=== PATIENT | male | born 1960 | race Caucasian/White ===

== ENCOUNTER 2017-10-03 19:35 | Day surgery (SDC) | payer OTHER, SELFPAY ==
[2017-10-03 19:39] VITALS: BP 146/95; PULSE 89; RESP 14; O2SAT 97
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
--- NOTE | 2017-10-03 20:15 | DI.RAD.S_ITS ---
PROCEDURE: XR HAND RT MIN 3V INDICATIONS: Lacerations/partial amputations to 2,3,4 and 5th finger tips TECHNIQUE: 3 views of the hand(s) acquired. COMPARISON: None. FINDINGS: Bones: Comminuted fractures of the distal phalanges of the index, middle and little finger. There is partial amputation of the distal phalanx of the middle finger. No definite fracture seen involving the ring finger distal phalanx although there is soft tissue injury and swelling. IMPRESSION: Amputation of the middle finger tip at the level of the distal phalanx. Comminuted fractures of the distal phalanges of the index, middle and little finger. Dictated by: Jluis Nazario M.D. on 10/03/2017 at 21:44 Approved by: Jluis Nazario M.D. on 10/03/2017 at 21:46
[2017-10-03] MEDS: HYDROMORPHONE 1 MG INJ IV ×2 (20:24→22:00)
[2017-10-03] MEDS: CEFAZOLIN 1 GM/50 ML FROZ.PIGGY IV (20:24)
--- NOTE | 2017-10-03 21:14 | PC.NURSE ---
right hand was irrigated with 1000ml NS and dressed with telfa. bleeding controlled.
[2017-10-03 21:47] VITALS: BP 129/75; PULSE 74; RESP 17; O2SAT 96
[2017-10-03] MEDS: SODIUM CHLORIDE 0.9% 1,000 ML 250 ML IV (22:00)
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
--- NOTE | 2017-10-03 22:39 | PM.PREOP ---
Pre-operative Note Interval Note Pre-op Check: Yes History & Physical exam performed today by Physician Changes: No
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
[2017-10-03] MEDS: LACTATED RINGERS 1,000 ML 42 ML IV (22:51)
[2017-10-03] MEDS: CITRIC ACID/SODIUM CITRATE 30 ML SOLUTION PO (22:51)
[2017-10-03 22:52] VITALS: BP 146/82; PULSE 80; RESP 20; TEMP 36.6; O2SAT 98; BMI 23.6
[2017-10-03] MEDS: BUPIVACAINE 0.25% (PF) VIAL 30 ML INJ (23:40)
[2017-10-04] VITALS (10 sets, daily range): BP systolic 102–141; BP diastolic 59–85; PULSE 65–81; RESP 15–20; TEMP 36.2–36.7; O2SAT 95–99; BMI 23.6
[2017-10-04] MEDS: CEFAZOLIN 2 GM/100 ML FROZ.PIGGY IV (06:05)
--- NOTE | 2017-10-04 07:13 | PM.DS.1 ---
History of Present Illness Date Patient Seen: 10/04/17 Time Patient Seen: 07:10 Chief complaint: Rt Hand Injury with finger amputations Narrative: Patient seen at bedside status post I and D the little ring index and middle fingers of the right hand with excision of comminuted proximal fragment distal phalanx of the index finger and repair of lacerations of the little index and ring fingers. He is postop day 1. He is doing well with his pain is well controlled. He is ready to go home. Discharge Providers Date of admission: 10/03/17 22:16 Consults: 10/04/17 00:56 Consult to Discharge Planning Routine Comment: Consult to Respiratory Therapy Evaluate & Treat Comment: Physician Instructions: Evaluate and treat Discharge provider: Yamileth Castellano PA-C Summary Discharge Diagnosis: 1. Open distal phalanx fractures of the right, little, and index fingers 2. Traumatic amputation at the IP joint of the middle finger Hospital Course: Patient was placed in observation status post I and D of the little ringing in the right hand with excision of coming proximal fracture of the distal phalanx of the index finger repair of lacerations a little index and ring fingers of the right hand. Patient is doing well, his pain is well controlled and he is ready to go home. Discharge home 10/04/2017 with follow up at the clinic in 1 weeks' time. Status at Discharge Cognitive/behavioral status at discharge: A&O x4 Functional status at discharge: independent ambulation Overall status at discharge: patient is progressing back to baseline Time Spent with Patient Less than 30 minutes Exam Vital Signs (past 8 hours): - 10/04/17 00:20 10/04/17 00:25 10/04/17 00:30 Temperature 97.5 F L 97.5 F L 97.5 F L Pulse Rate 77 71 68 Respiratory Rate 17 20 15 Blood Pressure 118/81 H 120/85 H 116/85 H Pulse Oximetry 95 99 99 10/04/17 00:40 10/04/17 00:57 10/04/17 01:24 Temperature 97.5 F L 97.6 F 97.6 F Pulse Rate 69 69 65 Respiratory Rate 20 16 16 Blood Pressure 127/81 H 129/82 H 116/70 Pulse Oximetry 98 97 99 10/04/17 01:50 10/04/17 02:50 10/04/17 06:18 Temperature 98.1 F 97.2 F L 97.9 F Pulse Rate 69 73 79 Respiratory Rate 16 16 16 Blood Pressure 116/70 102/59 L 117/73 Pulse Oximetry 96 97 97 Oxygen Delivery Method Heated High Flow Narrative Exam Narrative: Patient is well-developed well-nourished in no acute distress. Patient is alert and oriented x3. Examination right hand is in a short-arm splint that is clean dry and intact with no signs of discharge. He is neurovascularly intact in this extremity. Discharge Plan Discharge Plan Patient Disposition: Home, Self-Care Provider Discharge Instructions Diet: Diet as Tolerated Activity: No lifting greater than 5 lbs with operative hand. Cold/Heat Therapy: Ice for 20 minutes at a time as needed. Wound Care Report to your healthcare provider any signs of infection, such as:: chills, fever, night sweats, increased pain and unusual drainage Dressing: Keep dressing clean, dry, and intact until follow up appointment. Discharge Data Attending Provider: Johnson Orozco Admit Date/Time: 10/03/17 22:16 Quality VTE Deep Vein Thrombosis/Pulmonary Embolism Present on Admission: No
[2017-10-04] MEDS: OXYCODONE IR 5 MG TABLET PO (07:42)
--- NOTE | 2017-10-04 07:48 | PC.NURSE ---
late entry admit note: pt to floor -rm 204 via stretcher from PACU at 0050, awake/alert denied any pain to R hand. cap refill to R thumb wnl,warm dry skin, drsg/splint intact w/ruby wrap to cover. arm/hand elevated w/ice pack in place. RA sat 92-98% while awake. staying overnight w/pt, plan for DC home in am.
--- NOTE | 2017-10-04 08:09 | CM.DANOTE ---
DCP Chart Review/Discharge Home Patient is a 57 year old male who was admitted on 10/03/17 for Rt Hand Injury with Amputation. Pt has [employer] for insurance and his PCP is not listed and on [facility]. EMR was reviewed. Per MD, pt is medically stable to d/c home today with supportive family and no identified barriers to discharge. Per RN, pt's supportive spouse is bedside and pt is independent in the room and no needs at this time. No needs identified and no bedside assessment for d/c planning due to triage needs. Plan: Patient to d/c home back to [facility] today via spouse POV. No SW needs at this time. JUSTIN Tenorio Discharge Planning/Care Management CM Discharge Assessment Start: 10/04/17 08:07 Freq: Status: Active Protocol: Document 10/04/17 08:08 BF (Rec: 10/04/17 08:09 [email or web address]) Discharge Planning Assessment Assigned Clinic Receptionist [employer] History Provided By Significant Other Medical Record Has Patient been admitted in last 30 No days? Is this patient on Medicare? No Is the admit diagnosis the same? Yes Prior Living Arrangements House Household Members spouse children Type of transporation used prior to Drives own vehicle admit Independent with ADL's Yes Is patient alert and oriented? Yes Caregiver for Another Yes: children Referrals Initiated None needed Discharge Plan Home Transportation Arrangement Spouse bedside and can provide transport back to [facility] Review Status In Process Next Review Type Discharge Review
== END 2017-10-04 10:08 | disposition home or self-care (01) ==
LOC: ED 20:12 → AC 10-04 00:39 → OR 10-04 11:05
PROVIDERS: Emergency Provider Emergency Medicine; Visit Provider Orthopaedic Surgery
PROC: (CPT 26236; principal; 2017-10-03 22:45)
DX: S68.613A Complete traumatic transphalangeal amputation of left middle finger, initial encounter (principal); S62.630B Displaced fracture of distal phalanx of right index finger, initial encounter for open fracture; S62.634B Displaced fracture of distal phalanx of right ring finger, initial encounter for open fracture; S62.636B Displaced fracture of distal phalanx of right little finger, initial encounter for open fracture; W26.8XXA Contact with other sharp object(s), not elsewhere classified, initial encounter
CPT/HCPCS: 26236 ×2; 12002; 73130; 99283; G0378; J0330; J0690; J1100; J1170; J2250; J2405; J2704; J3010

== ENCOUNTER → 2020-09-26 12:18 | Outpatient (CLI) | payer OTHER, SELFPAY ==
[2017-10-04 02:29] VITALS: BMI 23.6
[2020-09-26 22:35] LABS: COVID19 - ORCAS (NP or Nasal) Negative (Negative)
== END ==
PROVIDERS: PCP Family Medicine; Visit Provider Physician Assistant Medical
DX: Z20.822 Contact with and (suspected) exposure to COVID-19 (principal)
CPT/HCPCS: U0003

== ENCOUNTER → 2023-08-11 12:32 | Outpatient (CLI) | payer OTHER, SELFPAY ==
[2023-08-11 12:32] VITALS: BMI 23.6
--- NOTE | 2023-08-11 12:37 | DI.RAD.S_ITS ---
PROCEDURE: XR HIP W PEL IF DONE NICCI MIN 4V INDICATIONS: BILATERAL HIP JOINT PAIN TECHNIQUE: AP pelvis with lateral view(s) of the both hip(s). COMPARISON: None. FINDINGS: Bones: Mild bilateral hip arthrosis. No acute displaced fracture or dislocation. Soft tissues: Suspected bilateral calcific tendinopathy of the greater trochanters. IMPRESSION: Mild bilateral hip arthrosis. No acute radiographic abnormality. If there is high concern for further derangement, consider MRI evaluation. Dictated by: Gregorio Monteiro M.D. on 08/11/2023 at 14:44 Approved by: Gregorio Monteiro M.D. on 08/11/2023 at 14:44
== END ==
LOC: RAD 12:36
PROVIDERS: PCP Family Medicine; Referring Provider Family Medicine; Visit Provider Family Medicine
DX: M16.0 Bilateral primary osteoarthritis of hip (principal); M25.551 Pain in right hip; M25.552 Pain in left hip
CPT/HCPCS: 73522

== ENCOUNTER → 2023-09-29 08:41 | Outpatient (CLI) | payer BC, SELFPAY ==
[2023-08-11 12:32] VITALS: BMI 23.6
--- NOTE | 2023-09-29 08:43 | DI.NM.S_ITS ---
PROCEDURE: NM JJ PERF SPECT REST & STR Rest and exercise myocardial perfusion SPECT with gated imaging and ejection fraction RADIOPHARMACEUTICAL: 11.6 mCi Tc-99m sestamibi IV at rest and 25.4 mCi Tc-99m sestamibi IV at peak exercise. A [id number] was performed. INDICATIONS: Atherosclerotic heart disease/pure hypercholesterolemia TECHNIQUE: Radiopharmaceutical was injected at peak stress test, and also at rest. SPECT images were obtained. SPECT myocardial perfusion images were displayed in short axis, horizontal long axis, and vertical long axis views. Gated images were reviewed using XYZE software. COMPARISON: None. CARDIAC STRESS: A standard Reg treadmill exercise tolerance test was performed by the patient under the supervision of an attending staff. The patient exercised for 11 minutes and 11 seconds; 11.8 METS; functional aerobic impairment (JASPER) is -27%. Hemodynamic data: There is normal blood pressure and heart rate response to exercise stress. Patient achieved 101% of maximum predicted heart rate at peak exercise. Maximum blood pressure 160/90. Symptoms: Patient denied chest pain during exercise. EK-[address] segment depressions inferior and anterolateral leads; no arrhythmia or ectopy. FINDINGS: Raw data: There is good myocardial labeling by radiotracer. No significant motion artifacts. Rank-zc-xcdye ratio is 0.32 (normal is less than 0.38 for sestamibi tracer, and less than 0.50 for thallium tracer). Left ventricle function: Gated images demonstrate normal left ventricle wall thickening. No segmental wall motion abnormality. No transient ischemic dilation; TID is 0.78 (normal less than 1.3). The left ventricle resting end-diastolic volume is 84 mL. Left ventricle stress ejection fraction is 73%; normal values are above 45%. Myocardial perfusion: There is normal distribution of activity in the left and right ventricular myocardium. No fixed or reversible perfusion defects. IMPRESSION: Low risk study. No evidence of exercise-induced ischemia on SPECT imaging. False positive exercise ECG. Normal LV size and function. Normal hemodynamic response. Very good exercise capacity. Dictated by: Jeannette Dominguez D.O. on 09/29/2023 at 16:10 Approved by: Jeannette Dominguez D.O. on 09/29/2023 at 16:17
== END ==
PROVIDERS: PCP Family Medicine; Referring Provider Internal Medicine Cardiovascular Disease; Visit Provider Internal Medicine Cardiovascular Disease
DX: I25.119 Atherosclerotic heart disease of native coronary artery with unspecified angina pectoris (principal); E78.00 Pure hypercholesterolemia, unspecified
CPT/HCPCS: 78452; 93017; A9502

== ENCOUNTER 2025-01-30 08:43 | Day surgery (SDC) | payer BC, SELFPAY ==
[2023-08-11 12:32] VITALS: BMI 23.6
[2025-01-14 07:40] VITALS: BMI 26.5
[2025-01-30 09:19] VITALS: BP 140/88; PULSE 61; RESP 18; TEMP 36.1; O2SAT 100
--- NOTE | 2025-01-30 09:26 | PM.HP.IH.1 ---
History of Present Illness History of Present Illness Date Patient Seen: 01/30/25 Chief complaint: Screening Colonoscopy [facility] Medical History (Updated 01/30/25 @ 09:29 by Yoon Lobato MD) GERD (gastroesophageal reflux disease) Kidney stones Testicular cancer Coronary artery disease High cholesterol High blood pressure Surgical History (Updated 01/14/25 @ 07:37 by Antoinette Pena, RN) Hx of hand surgery (10/03/17) H/O bilateral orchiectomies Family History (Updated 07/13/21 @ 14:34 by Rosalina Temple RN) Sister Cancer Hx of migraines Mother Hx of migraines Social History (Updated 07/13/21 @ 14:35 by Rosalina Temple RN) marital status: number of children: 2 household members: spouse and children Type(s) of exercise: weight lifting frequency: 3-4 times per week Meds Home Medications and Allergies Home Medications ?Medication ?Instructions ?Recorded ?Confirmed ?Type atorvastatin 40 mg tablet 40 mg PO DAILY ##0 10/03/17 01/30/25 History metoprolol succinate 25 mg 12.5 mg PO BEDTIME ##0 10/03/17 01/30/25 History tablet,extended release 24 hr oxycodone 5 mg tablet 5 mg PO Q4H PRN Pain, Moderate 10/04/17 01/30/25 Rx (4-6) #30 tabs testosterone cypionate 200 mg/mL 200 mg IM Q2W 10/04/17 01/30/25 History intramuscular kit aspirin 81 mg capsule 81 mg PO DAILY 01/14/25 01/14/25 History coenzyme Q10 100 mg capsule 100 mg PO DAILY 01/14/25 01/14/25 History estradiol 1 mg tablet (Estrace) 1 mg PO DAILY 01/14/25 01/14/25 History Allergies Allergy/AdvReac Type Severity Reaction Status Date / Time venom-honey bee Allergy Verified 01/30/25 09:09 Exam Narrative Exam Narrative: Oropharynx free of lesions Chest clear to auscultation percussion Cardiac exam reveals no S3 or murmur Assessment & Plan Assessment and plan (1) Colon cancer screening: Status: Acute Plan History of adenomatous colon polyps need for follow-up colonoscopy. Risks, benefits, alternatives have been discussed Assessment & Plan narrative: See above. Risks, benefits, alternatives have been explained. Need for follow-up colonoscopy at a 5 year interval Time-Based Coding :: [TOTAL MINUTES] spent with patient and on the chart (including review of chart, obtaining history, exam, reviewing outside data, placing orders, documenting exam and treatment plan, and counseling patient) on [DATE]. [employer] Project [employer] Document charge(s): No
--- NOTE | 2025-01-30 09:29 | PM.OP.COLON ---
Operative Date/Time/Diagnoses Date of procedure: 01/30/25 Time of procedure: 10:35 Pre-op diagnosis: Indication colon cancer screening with history of colon polyps Post-op diagnosis: same Procedure & Clinicians Study performed: Colonoscopy Same procedure(s) as scheduled: Yes Indications: Follow-up colonoscopy for history of colon polyps Surgeon: Yoon Lobato Anesthesia Type: MAC +/- Procedure Notes Procedure in detail: After informed consent was obtained the patient was placed in left lateral decubitus position. The video colonoscope was placed in the rectum slowly advanced cecum. Preparation was good. On slow withdrawal mucosa was carefully examined. The scope was removed. The patient tolerated procedure well. Blood loss none Complications none Sedation mac Findings 1. Normal colonoscopy to cecum Patient should have follow-up colonoscopy in 5 years Estimated Blood Loss: 0 Complications: none
[2025-01-30] MEDS: LACTATED RINGERS 1,000 ML 42 ML IV (09:30)
[2025-01-30 10:21] VITALS: BP 113/72; PULSE 75; RESP 17; TEMP 36.4; O2SAT 97
[2025-01-30 10:25] VITALS: BP 120/75; PULSE 84; RESP 26; O2SAT 98
[2025-01-30 10:30] VITALS: BP 126/77; PULSE 63; RESP 21; O2SAT 99
== END 2025-01-30 11:00 | disposition home or self-care (01) ==
PROVIDERS: PCP Family Medicine; Referring Provider Internal Medicine Gastroenterology; Visit Provider Internal Medicine Gastroenterology
PROC: 0DJD8ZZ Inspection of Lower Intestinal Tract, Via Natural or Artificial Opening Endoscopic (ICD-10-PCS; CPT 45378; principal; 2025-01-30 10:15)
DX: Z12.11 Encounter for screening for malignant neoplasm of colon (principal); Z86.0101 Personal history of adenomatous and serrated colon polyps
CPT/HCPCS: 45378; J2704; J7120